=== PATIENT | female | born 1990 | race Caucasian/White ===

== ENCOUNTER 2017-03-16 17:03 | Emergency (ER) | payer BC | END 2017-03-16 17:41 | disposition home or self-care (01) | LOC: SCSER 17:03 | DX: R05 Cough (principal); F41.9 Anxiety disorder, unspecified; F32.9 Major depressive disorder, single episode, unspecified; N18.1 Chronic kidney disease, stage 1; Z79.899 Other long term (current) drug therapy | CPT/HCPCS: 99283 ==